=== PATIENT | male | born 1990 | race Caucasian/White ===

== ENCOUNTER 2018-06-02 18:39 | Emergency (ER) | payer SELFPAY ==
--- NOTE | 2018-06-02 19:45 | ER Document Report ---
HPI - HPI Patient complains to provider of: Left knee pain Pain Level: 3 Context: Patient is a 28-year-old male that comes to the emergency department for of left knee pain. 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 He denies any severe swelling, he has ice to the knee, he denies numbness , hip pain, ankle pain, back pain, or any other complaints. Only past medical history reported is tonsillectomy. Past Medical History - General Information source: Patient - Social History Smoking Status: Never Smoker Lives with: Family Family History: Reviewed & Not Pertinent - Medical History Medical History: Negative Past Surgical History: Reports: Hx Tonsillectomy - Immunizations Hx Diphtheria, Pertussis, Tetanus Vaccination: Yes Vertical Provider Document - CONSTITUTIONAL General Appearance: WD/WN, No Apparent Distress - INFECTION CONTROL TRAVEL OUTSIDE OF THE [place] IN LAST 30 DAYS: No - HEENT HEENT: Atraumatic, Normal ENT Exam, Normocephalic - NECK Neck: Normal Inspection - RESPIRATORY Respiratory: Breath Sounds Normal, No Respiratory Distress - CARDIOVASCULAR Cardiovascular: Regular Rate, Regular Rhythm - GI/ABDOMEN Gastrointestinal: Abdomen Soft, Abdomen Non-Tender - BACK Back: Normal Inspection - MUSCULOSKELETAL/EXTREMETIES Musculoskeletal/Extremeties: Tender - There is general mild tenderness with palpation around the patella of the left knee, no overt swelling, erythema, abnormal heat. No wounds noted. Full range of motion. Normal distal neurovascular exam. Normal hip, ankle exam. Lower extremity exam unremarkable otherwise. Course - Re-evaluation Re-evalutation: Knee examination has minimal tenderness, he does have some tenderness with walking but he is able to ambulate without severe difficulty. No erythema, abnormal heat, or loss of range of motion suggesting septic joint. No history of IV drug abuse. Discussed knee immobilizer, anti-inflammatories, supportive measures, follow-up with orthopedics, and return precautions. Patient states understanding and agreement. - Vital Signs Vital signs: Temp Pulse Resp BP Pulse Ox 98.1 F 71 14 147/83 H 98 06/02/18 18:46 06/02/18 18:46 06/02/18 18:46 06/02/18 18:46 06/02/18 18:46 Procedures - Immobilization Left knee Pre-Proc Neuro Vasc Exam: Normal Immobilizer type: Knee immobilizer Performed by: PCT Post-Proc Neuro Vasc Exam: Normal Alignment checked and good: Yes Discharge - Discharge Clinical Impression: Left knee pain Qualifiers: Chronicity: acute Qualified Code(s): M25.562 - Pain in left knee Left knee injury Qualifiers: Encounter type: initial encounter Qualified Code(s): S89.92XA - Unspecified injury of left lower leg, initial encounter Condition: Stable Disposition: HOME, SELF-CARE Additional Instructions: Your x-ray shows a small effusion in the knee, this is a fluid buildup that frequently happens with a tendon or ligament injury. This frequently resolves with time, I recommend wearing the knee immobilizer and using the crutches at least for the first few days, take the anti-inflammatory, apply ice to the knee 3-4 times a day for 10-15 minutes, and rest. If symptoms continue please follow -up with orthopedics for additional evaluation, see referral. Return if you worsen including severe pain, severe swelling, redness, fever, or any other concerning symptoms. Prescriptions: Naproxen 500 mg PO BID PRN #20 tablet PRN Reason: Forms: Return to Work Referrals: TYLOR PRESSLEY MD [ACTIVE STAFF] - Follow up in 1 week
--- NOTE | 2018-06-02 20:27 | RADIOLOGY REPORT (SQ) ---
EXAM DESCRIPTION: KNEE LEFT 4 VIEW COMPLETED DATE/TIME: 06/02/2018 7:59 pm REASON FOR STUDY: injury, pain COMPARISON: None. NUMBER OF VIEWS: Four views. TECHNIQUE: AP, lateral, and both oblique radiographic images acquired of the left knee. LIMITATIONS: None. FINDINGS: MINERALIZATION: Normal. BONES: No acute fracture or dislocation. No worrisome bone lesions. JOINT: Tiny suprapatellar knee joint effusion. SOFT TISSUES: No soft tissue swelling. No radio-opaque foreign body. OTHER: No other significant finding. IMPRESSION: Tiny suprapatellar knee joint effusion. No acute fracture or malalignment. TECHNICAL DOCUMENTATION: JOB ID: [id number] [employer]- All Rights Reserved Reading location - IP/workstation name: [email or web address]
[2018-06-02 20:57] VITALS: BP 122/64
== END 2018-06-02 20:57 | disposition home or self-care (01) ==
LOC: ER 18:39
DX: S89.92XA Unspecified injury of left lower leg, initial encounter (principal); M25.562 Pain in left knee; X50.1XXA Overexertion from prolonged static or awkward postures, initial encounter
CPT/HCPCS: 99283; 73564; L1830